=== PATIENT | male | born 1990 ===

== ENCOUNTER 2021-02-18 08:56 | Emergency (ER) | payer SELFPAY ==
[2021-02-18 09:04] VITALS: BP 128/53; PULSE 65; RESP 16; TEMP 36.8; O2SAT 99; BMI 35.0
--- NOTE | 2021-02-18 09:12 | ED.DENTAL ---
HPI - Dental/Oral General Chief complaint: Dental/Oral Stated complaint: dental pain Time Seen by Provider: 02/18/21 09:12 Source: patient Mode of arrival: ambulatory Limitations: no limitations History of Present Illness HPI Narrative: 30 y/o male presenting with 2 weeks of worsening left upper molar pain. He reports trying to go see a dentist however he does not have active health insurance so he was told he could not be seen and to come to the ER for evaluation. He reports pain in his back 2 upper molars that extends to his left ear and head. He denies facial swelling. No facial or dental trauma. No facial swelling. MD Complaint: tooth pain Location: Tooth # Teeth map: 1. pain Onset (ago): week(s) Duration: constant Severity: severe Relieving factors: nothing Exacerbating factors: nothing Context: history of dental caries and poor dental care Associated symptoms: gum swelling and ear pain Treatment prior to arrival: none Related Data Previous Rx's Medication Instructions Recorded ibuprofen 800 mg PO Q8H PRN #20 tab 02/18/21 penicillin V potassium 500 mg PO TID 7 Days #21 tab 02/18/21 tramadol 50 mg PO Q8H PRN #6 tab 02/18/21 Allergies Allergy/AdvReac Type Severity Reaction Status Date / Time No Known Allergies Allergy Verified 02/18/21 09:04 [No Known Allergies*] Review of Systems Review of Systems: Constitutional: No Fever, No Chills ENT/Mouth: No sore throat, No Rhinorrhea, No Swallowing Difficulty, +dental pain, +ear pain Cardiovascular: No Chest Pain, No SOB Respiratory: No Cough, No Sputum Gastrointestinal: No Nausea, No Vomiting Skin: No Skin Lesions, No rash Neuro: + Headache Heme/Lymph: No Bruising, No Lymphadenopathy PMFSH Past Medical History Attestation statement: The following information was validated with the patient. Medical History No known health problems Social History Social History Advance Directives: Yes Advance Directives Information Provided: No Advance Directives on File: No Physical Exam Vital Signs: Vital Signs: Last Vital Signs Temp 98.2 F 02/18/21 09:04 Pulse 65 02/18/21 09:04 Resp 16 02/18/21 09:04 BP 128/53 L 02/18/21 09:04 Pulse Ox 99 02/18/21 09:04 Body Mass Index 35.0 Const: General: cooperative, healthy appearing, comfortable and no acute distress HENMT: Head: Yes normal to inspection, Yes normocephalic and Yes atraumatic Ears: hearing grossly normal bilaterally, external ears normal and TM's normal bilaterally General nose exam: Normal external nose present Face and sinus: Yes normal facial exam, Yes sinuses nontender and Yes face symmetric Mouth: Normal oral and palatal mucosa present, lip normal, tongue normal and moist mucous membranes Teeth and gingiva: abnormal tooth and associated gingiva upper left second molar tender and with associated gingival edema, caries and gingiva abnormal edematous and tender Teeth image: 1. tenderness and swelling without gingival fluctuance Throat: Yes posterior oropharynx normal, Yes tonsils normal and Yes uvula midline Eyes: General: appearance normal, both eyes and all related structures Neck: Neck: Yes normal visual inspection, Yes full ROM and Yes no lymphadenopathy Chest: Chest palpation & inspection: normal inspection of the chest Resp: Effort & Inspection: normal respiratory effort and able to speak in complete sentences Skin: General skin exam: no rashes or lesions noted Extrem: General: Yes normal to inspection Psych: Appearance: grossly normal and well kempt Course Course Course Narrative: 30 y/o male presenting with left upper dental pain x2 weeks. Exam reveals molar tenderness and gingival tenderness without evidence of abscess. Will give Rx for PCN and pain control. Importance of dental follow up discussed and patient agrees to call [facility] today to arrange. He is stable for discharge home . Critical Care Time Critical Care Time Critical Care Time: No Discharge Plan Discharge Clinical Impression: Toothache Patient Disposition: Home, Self-Care Instructions: Toothache (ED) Additional Instructions: Take the prescribed medications as directed. Use ice to your face as needed for pain. Use over the counter orajel to help numb the area. Follow up with a dentist MICHAEL. If you develop new or worsening symptoms call 911 or come back to the ER for further evaluation. [place] los medicamentos recetados seg?n las indicaciones. Use hielo en caceres kaykay seg?n sea necesario para el dolor. Use orajel de venta rosey para ayudar a adormecer el ?aubrye. Figueroa un seguimiento con un dentista lo antes posible. Si presenta s?ntomas nuevos o que empeoran, llame al 911 o regrese a la kia de emergencias para manjit evaluaci?n adicional. Prescriptions: New ibuprofen 800 mg tablet 800 mg PO Q8H PRN (Reason: pain) Qty: 20 RF: 0 penicillin V potassium 500 mg tablet 500 mg PO TID 7 Days Qty: 21 RF: 0 tramadol 50 mg tablet 50 mg PO Q8H PRN (Reason: pain) Qty: 6 RF: 0 Stand Alone Forms: Dental Emergency Numbers, Work/School Release Interventions: ED Discharge Assessment Last Done: 02/18/21 09:45 Discharge Date/Time: 02/18/21 09:46 Print Language: Latvian
== END 2021-02-18 09:46 | disposition home or self-care (01) ==
LOC: HO.ED 09:30
PROVIDERS: Emergency Provider Emergency Medicine
DX: K02.9 Dental caries, unspecified (principal)
CPT/HCPCS: 99283

== ENCOUNTER 2021-07-06 17:22 | Emergency (ER) | payer OTHER, SELFPAY ==
--- NOTE | ~2021-07-06 | XR_ITS ---
EXAMINATION: XR CHEST CLINICAL INFORMATION: Cough for 2 weeks. Question pneumonia. COMPARISON: None TECHNIQUE: Frontal view of the chest was obtained. FINDINGS: Cardiac silhouette is normal in size. The lungs are well aerated. There is no lobar consolidation. No pleural effusion or pneumothorax. No acute osseous abnormality. XR/XR chest 1V IMPRESSION: No acute pulmonary pathology.
[2021-07-06 18:02] VITALS: BP 136/88; PULSE 65; RESP 18; TEMP 36.8; O2SAT 99; BMI 25.7
[2021-07-06 20:07] VITALS: BP 137/70; PULSE 74; RESP 18; TEMP 36.8; O2SAT 99
[2021-07-06 20:36] LABS: COVID-19 Test Positive (Negative)
--- NOTE | 2021-07-06 21:27 | ED_ITS ---
HPI - URI/Sore Throat General Chief Complaint: Upper Respiratory Symptoms Stated Complaint: Flu like symptoms Time Seen by Provider: 07/06/21 20:00 Source: patient Mode of arrival: ambulatory Limitations: no limitations History of Present Illness HPI Narrative: 30-year-old male presents to ED with COVID like symptoms. Patient states loss of taste, smell, body aches, and diarrhea for 2 weeks. Patient states he is not vaccinated. Related Data Previous Rx's Medication Instructions Recorded ibuprofen 800 mg tablet 800 mg PO Q8H PRN #20 tab 02/18/21 penicillin V potassium 500 mg 500 mg PO TID 7 Days #21 tab 02/18/21 tablet tramadol 50 mg tablet 50 mg PO Q8H PRN #6 tab 02/18/21 Allergies Allergy/AdvReac Type Severity Reaction Status Date / Time No Known Allergies Allergy Verified 02/18/21 09:04 [No Known Allergies*] Review of Systems Review of Systems: Yes all other systems are reviewed and are negative Constitutional: Constitutional: Reports as per HPI, Reports no additional constitutional complaints, Reports body ache(s), Reports chills and Reports headache(s) Eyes: Eyes: Reports as per HPI and Reports no additional eye complaints ENT: Reports system reviewed and no additional complaints, except as documented, Reports as per HPI and Reports headache(s) Comments: Loss of smell, loss of taste, Cardiovascular: Cardiovascular: Reports as per HPI and Reports no additional cardiovascular complaints Respiratory: Respiratory: Reports as per HPI, Reports no additional respiratory complaints and Reports cough Gastrointestinal: Gastrointestinal: Reports as per HPI, Reports no additional gastrointestinal complaints and Reports diarrhea Genitourinary: Genitourinary: Reports no additional male genitourinary complaints and Reports as per HPI Musculoskeletal: Musculoskeletal: Reports no additional musculoskeletal complaints and Reports as per HPI Neurologic: Reports system reviewed and no additional complaints, except as do cumented, Reports as per HPI and Reports headache(s) Psychiatric: Psychiatric: Reports no additional psychiatric complaints and Reports as per HPI COUNT INCLUDES THE [facility] Past Medical History Medical History No known health problems Social History Social History Advance Directives: No Advance Directives Information Provided: No Physical Exam Vital Signs: Vital Signs: Last Vital Signs Temp 98.2 F 07/06/21 20:07 Pulse 74 07/06/21 20:07 Resp 18 07/06/21 20:07 BP 137/70 07/06/21 20:07 Pulse Ox 99 07/06/21 20:07 Body Mass Index 25.7 Const: General: cooperative, healthy appearing, comfortable, no acute distress, well developed, alert, awake and Physically active; No acute distress Orientation/consciousness: patient oriented x3 HENMT: Head: Yes normal to inspection, Yes No palpable skull fracture present, Yes normocephalic, Yes atraumatic and No abrasion Eyes: General: appearance normal, both eyes and all related structures Neck: Neck: Yes normal visual inspection, Yes full ROM, Yes no lymph adenopathy, Yes no meningeal signs, Yes trachea midline, Yes supple, No anterior neck swelling and No tender Chest: Chest palpation & inspection: normal inspection of the chest and normal palpation of entire chest wall Resp: Effort & Inspection: normal respiratory effort and able to speak in complete sentences Auscultation: clear to auscultation bilaterally Cardio: Jugular venous distension: no JVD Heart sounds: S1 normal heart sound present and S2 normal heart sound present GI: Inspection: Yes normal to inspection and No abdominal wall ecchymosis Palpation (GI): Soft to palpation, not firm, nontender, no guarding and not rigid : General: No CVA tenderness and Yes no CVA tenderness Back/Spine/Pelvis: Back: no CVA tenderness, No CVA tenderness and No back tenderness Skin: General skin exam: no rashes or lesions noted and elasticity normal Neuro: General: patient oriented x3, gait normal, no meningeal signs and CN's II-XI intact bilaterally Cranial nerves: Yes CN's II-XII intact bilaterally Extrem: General: Yes normal to inspection and Yes full ROM Psych: Appearance: grossly normal, well kempt and not disheveled Course Course Course Narrative: Patient COVID and chest x-ray ordered. Reevaluation(s) Reevaluation #1: COVID swab positive. Patient educated on self-isolation. Patient informed to return to ED immediately if he has chest pain, shortness of breath, weakness, dizziness. Time: 21:38 MDM - URI/Sore Throat MDM Narrative Medical decision making narrative: COVID Lab Data Labs: Lab Results 07/06/21 Range/Units 20:09 COVID-19 (TOBY) Positive A (Negative) COVID-19 Clin Com See Note Discharge Plan Discharge Clinical Impression: COVID Patient Disposition: Home, Self-Care Instructions: COVID-19 (Coronavirus Disease 2019) (ED) Additional Instructions: Caceres hisopo COVID kale positivo. Necesita aislarse por s? mismo anita 2 semanas. Regrese al servicio de urgencias de inmediato si tiene dolor en el pecho, dificultad para respirar, debilidad, mareos, dolor en la pantorrilla, tos con riaz o cualquier otro s?ntoma preocupante. Figueroa un seguimiento con caceres proveedor de atenci?n primaria. Prescriptions: No Action ibuprofen 800 mg tablet 800 mg PO Q8H PRN (Reason: pain) Qty: 20 RF: 0 penicillin V potassium 500 mg tablet 500 mg PO TID 7 Days Qty: 21 RF: 0 tramadol 50 mg tablet 50 mg PO Q8H PRN (Reason: pain) Qty: 6 RF: 0 Stand Alone Forms: Work/School Release Interventions: ED Discharge Assessment Last Done: 07/06/21 21:48 Discharge Date/Time: 07/06/21 21:53 Print Language: Mongolian
== END 2021-07-06 21:53 | disposition home or self-care (01) ==
PROVIDERS: Emergency Provider Emergency Medicine
DX: U07.1 COVID-19 (principal); M79.10 Myalgia, unspecified site; R19.7 Diarrhea, unspecified
CPT/HCPCS: 36415; 71045; 87635; 99283

== ENCOUNTER 2021-10-30 18:14 | Emergency (ER) | payer SELFPAY ==
--- NOTE | ~2021-10-30 | XR_ITS ---
EXAMINATION: XR HAND, LEFT CLINICAL INFORMATION: Pain and swelling of the fourth finger COMPARISON: None TECHNIQUE: PA, lateral, and oblique views of the left hand. FINDINGS: Soft tissue swelling at the PIP joint of the fourth finger. There is no fracture. No dislocation. Bone and joint are normal. XR/XR hand LT 2V IMPRESSION: Soft tissue swelling PIP joint of fourth finger. No acute osseous abnormality.
[2021-10-30 18:38] VITALS: BP 132/57; PULSE 71; RESP 18; TEMP 37.1; O2SAT 99; BMI 22.1
[2021-10-30] MEDS: Ibuprofen 800 MG TABLET PO (19:26)
[2021-10-30] MEDS: Diphth,Pertus(ACell),Tet Adult 0.5 ML SYRINGE IM (19:27)
--- NOTE | 2021-10-30 19:30 | ED_ITS ---
HPI - Wound/Laceration General Chief Complaint: Wound/Laceration Stated Complaint: laceration on left ring finger, swollen Time Seen by Provider: 10/30/21 18:48 Source: patient Mode of arrival: ambulatory Limitations: no limitations History of Present Illness HPI narrative: Patient is here with complaints of left 4th finger pain and swelling. Patient tells me that he had a wedding ring on and was playing with his dog when his hand got jammed in the doorway due to his ring being caught. He was able to forcefully pole his hand away which cause an injury to the left 4th finger. Patient having swelling and bruising of the finger. No difficulty with moving the digit. No fevers or chills. Patient is left-hand dominant Related Data Previous Rx's Medication Instructions Recorded ibuprofen 800 mg tablet 800 mg PO Q8H PRN #20 tab 02/18/21 penicillin V potassium 500 mg 500 mg PO TID 7 Days #21 tab 02/18/21 tablet tramadol 50 mg tablet 50 mg PO Q8H PRN #6 tab 02/18/21 ibuprofen 600 mg tablet 600 mg PO Q8H PRN #30 tab 10/30/21 Allergies Allergy/AdvReac Type Severity Reaction Status Date / Time No Known Allergies Allergy Verified 10/30/21 18:38 [No Known Allergies*] Review of Systems Review of Systems: Yes all other systems are reviewed and are negative Constitutional: Constitutional: Reports no additional constitutional complaints, Denies body ache(s), Denies chills, Denies fever(s), Denies headache(s) and Denies weakness Eyes: Eyes: Reports no additional eye complaints and Denies change in vision ENT: Reports system reviewed and no additional complaints, except as documented, Denies dizziness, Denies headache(s), Denies nasal congestion, Denies nasal discharge and Denies neck pain Cardiovascular: Cardiovascular: Reports no additional cardiovascular complaints, Denies chest pain, Denies leg edema and Denies dyspnea Respiratory: Respiratory: Reports no additional respiratory complaints, Denies cough and Denies dyspnea Gastrointestinal: Gastrointestinal: Reports no additional gastrointestinal complaints, Denies abdominal pain, Denies diarrhea, Denies nausea and Denies vomiting Genitourinary: Genitourinary: Denies urinary incontinence Musculoskeletal: Musculoskeletal: Reports no additional musculoskeletal complaints, Denies back pain, Reports arthralgias, Reports joint swelling, Denie s limited range of motion, Denies neck pain, Denies numbness and Denies tingling Integumentary/Breasts: Skin/Breast: Reports system reviewed and no additional complaints, except as docu and Denies rash Neurologic: Reports system reviewed and no additional complaints, except as documented, Denies Abnormal speech present, Denies dizziness, Denies headache(s), Denies numbness, Denies tingling and Denies weakness PMFSH Past Medical History Attestation statement: The following information was validated with the patient. Source: old records reviewed and nursing notes reviewed Medical History No known health problems Social History Social History Advance Directives: No Advance Directives Information Provided: No Physical Exam Vital Signs: Vital Signs: Last Vital Signs Temp 98.8 F 10/30/21 18:38 Pulse 71 10/30/21 18:38 Resp 18 10/30/21 18:38 BP 132/57 L 10/30/21 18:38 Pulse Ox 99 10/30/21 18:38 BMI result Body Mass Index 22.1 Const: General: cooperative, healthy appearing, comfortable and no acute distress Orientation/consciousness: patient oriented x3 Limitations: no limitations HEENT: Head: Yes normal to inspection Ears: hearing grossly normal bilaterally General nose exam: Normal external nose present Face and sinus: Yes normal facial exam Mouth: Normal oral and palatal mucosa present Throat: Yes posterior oropharynx normal Eyes: General: appearance normal, both eyes and all related structures Pupils: Equal, round and reactive pupils present Neck: Neck: Yes normal visual inspection Chest: Chest palpation & inspection: normal inspection of the chest Resp: Effort & Inspection: normal respiratory effort Auscultation: clear to auscultation bilaterally Cardio: Rate: regular rate Rhythm: regular rhythm Peripheral pulses: Peripheral pulses 2+ throughout GI: Inspection: Yes normal to inspection Palpation (GI): Soft to palpation and nontender Auscultation: normal bowel sounds Back/Spine/Pelvis: Thoracic/Lumbar Spine: thoracic and lumbar spine normal to inspection Skin: General skin exam: no rashes or lesions noted Neuro: General: patient oriented x3, no focal motor deficits and normal sensation to monofilament Cranial nerves: Yes Equal, round and reactive pupils present Cognition (Neuro): normal cognition Speech: No Abnormal speech present Gait exam (Neuro): Normal gait present Motor exam (neuro): 5/5 motor strength present throughout Extrem: General: Yes normal to inspection Hand/finger images: 1. There is swelling of the digit, there is ecchymosis of the digit with tenderness over the diffuse digit. Neurovascularly intact distally. Patient is able to flex and extend the digit but does have some pain with doing so. Over the volar aspect there is a small abrasion with no active bleeding. Course Course Course Narrative: 30-year-old male left-hand dominant here with reports of left 4th digit pain and swelling after his hand got caught due to his wedding ring being on causing the patient having to forcibly removed his hand from the caught space. Will check x-rays, provide analgesia. 2000-x-ray show no bony abnormality. Likely contusion. Patient will be placed in a finger splint for comfort. Tetanus was updated. Reviewed rice. Reviewed worrisome signs and symptoms of when to return to the emergency department. Comfortable discharge home. MDM - Wound/Laceration Medical Records Attestation: I reviewed the patient's medical records. Lab Data Attestation: I reviewed the patient's lab results. Imaging Data hand x-ray: Attestation: I personally reviewed and interpreted this imaging study as follows: Radiologist's impression: [address] [address] XRay Report Signed Patient: Antoni Drake MR#: [id number] : 1990 Acct:[id number] Age/Sex: 30 / M ADM Date: 10/30/21 Loc: HO.ED Attending Dr: Ordering Physician: Carlyn Griffin NP Date of Service: 10/30/21 Procedure(s): XR hand LT 2V Accession Number(s): [id number] cc: Carlyn Griffin NP~ EXAMINATION: XR HAND, LEFT CLINICAL INFORMATION: Pain and swelling of the fourth finger? COMPARISON: None? TECHNIQUE: PA, lateral, and oblique views of the left hand. FINDINGS: Soft tissue swelling at the PIP joint of the fourth finger. There is no fracture. No dislocation. Bone and joint are normal.? XR/XR hand LT 2V IMPRESSION: Soft tissue swelling PIP joint of fourth finger. No acute osseous abnormality. Procedures Procedure Narrative Procedure Narrative: finger splint Discharge Plan Discharge Clinical Impression: Contusion of finger of left hand Patient Disposition: Home, Self-Care Instructions: Contusion in Adults (ED) Additional Instructions: Finger splint for comfort Ice to the area Elevation Limit use of the extremity for a few days Prescriptions: New ibuprofen 600 mg tablet 600 mg PO Q8H PRN (Reason: pain) Qty: 30 0RF No Action ibuprofen 800 mg tablet 800 mg PO Q8H PRN (Reason: pain) Qty: 20 0RF penicillin V potassium 500 mg tablet 500 mg PO TID 7 Days Qty: 21 0RF tramadol 50 mg tablet 50 mg PO Q8H PRN (Reason: pain) Qty: 6 0RF Rx Instructions: partial fill ok Referrals: Physician,Unknown J [Primary Care Provider] - 2 days Interventions: ED Discharge Assessment Last Done: 10/30/21 20:06 Discharge Date/Time: 10/30/21 20:08 Print Language: Mexican
== END 2021-10-30 20:08 | disposition home or self-care (01) ==
PROVIDERS: Emergency Provider Internal Medicine
DX: S60.042A Contusion of left ring finger without damage to nail, initial encounter (principal); W23.1XXA Caught, crushed, jammed, or pinched between stationary objects, initial encounter; Y93.89 Activity, other specified; Y92.019 Unspecified place in single-family (private) house as the place of occurrence of the external cause; Y99.9 Unspecified external cause status
CPT/HCPCS: 29130; 73120; 90471; 90715; 99284